=== PATIENT | male | born 1975 | race Caucasian/White ===

== ENCOUNTER 2025-02-17 20:58 | Emergency (ER) | payer BC, SELFPAY ==
[2025-02-17 21:05] VITALS: BP 117/76; RESP 16; TEMP 37.4; BMI 28.4
--- NOTE | 2025-02-17 21:30 | CRLHL7_ITS ---
For Patients: As a result of the Century Cures Act, medical imaging exams and procedure reports are released immediately into your electronic medical record. You may view this report before your referring provider. If you have questions, please contact your health care provider. Indication: Left wrist swelling/drainage. Recent surgery. Technique: Three views of the left wrist. Comparison: None. Findings/Impression: There is soft tissue swelling of the wrist. Plate and screw fixation of the mid to distal radius is incompletely assessed. A surgical pin is present within the distal ulna. Surgical hardware appears grossly intact. Transversely oriented fracture of the radial shaft is present with suggestion of early attempted healing. There is no evidence of acute periprosthetic fracture, dislocation, or suspicious osseous lesion. Wrist alignment is preserved. Dictated by Lexx Umanzor MD @ 02/17/2025 10:35:31 PM (Electronically Signed)
--- OUTSIDE RECORDS SUMMARY | 2025-02-17 22:16 | XMS_ITS | Continuity of Care Document ---
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 wall hematoma. Pelvic ring appears intact. Femoral heads are well-positioned. SI joints are symmetric. Lumbar vertebral body heights are preserved. Left forearm fracture is incompletely evaluated on the weather strip installer view. Impression: 1. Nondisplaced anterior right third through fifth rib fractures. No pneumothorax. 2. No solid organ injury, free fluid, or free air. 3. Nonspecific hazy density within the central mesentery may indicate mesenteric adenitis. No focal mesenteric hematoma. 4. 11 mm left thyroid lobe nodule. Recommend outpatient ultrasound. 5. Left forearm fracture incompletely evaluated. Signed by Norma Marinelli MD 01/31/2025 9:[address] scans are performed using dose optimization techniques as appropriate to a performed exam including automated exposure control and/or standardized protocols for targeted exams where dose is matched to indication/reason for exam/patient size. Final Signed by: NORMA MARINELLI MD Signed (Electronic Signature): 01/31/2025 09:31 am CDT * Exam Date Time Procedure Performing Provider Status 01/31/25 9:[address] Trauma Chest W Dye, Charmaine CT Techno logist I; Modified Notes: (CT Trauma Chest W) Reason For Exam: BCW;Other (please specify) REPORT : 1975 Procedure: CT Chest With Contrast, CT Abdomen and Pelvis With Contrast Date: 01/31/2025 9:21 AM History: Injury, pain Comparison: None Contrast: 60-120 cc nonionic iv Findings: Chest: Aortic arch and great vessels opacify normally. Heart size is normal. No pericardial fluid or bulky mediastinal lymphadenopathy. There is an 11 mm hypoechoic left thyroid lobe nodule. Residual thymic tissue noted. No anterior mediastinal hematoma. No focal lung consolidation, pleural effusion, or pneumothorax. There is a calcified granuloma at the left lung base. Thoracic vertebral body heights are preserved. No displaced sternal fracture. Nondisplaced fractures noted of the anterior right third through fifth ribs no chest wall hematoma. ABDOMEN: The liver, spleen, kidneys, adrenals, pancreas, and gallbladder enhance normally. Neither kidney is hydronephrotic. Stomach is decompressed. No gross evidence of a duodenal hematoma. Mesenteric vessels and portal vein are patent. Nonspecific hazy density noted within the central mesentery. No focal mesenteric hematoma. Pelvis: No bowel dilatation, free fluid, or free air. The appendix is normal. The bladder is decompressed. No bowel containing hernia or abdominal wall hematoma. Pelvic ring appears intact. Femoral heads are well-positioned. SI joints are symmetric. Lumbar vertebral body heights are preserved. Left forearm fracture is incompletely evaluated on the weather strip installer view. Impression: 1. Nondisplaced anterior right third through fifth rib fractures. No pneumothorax. 2. No solid organ injury, free fluid, or free air. 3. Nonspecific hazy density within the central mesentery may indicate mesenteric adenitis. No focal mesenteric hematoma. 4. 11 mm left thyroid lobe nodule. Recommend outpatient ultrasound. 5. Left forearm fracture incompletely evaluated. Signed by Norma Marinelli MD 01/31/2025 9:[address] scans are performed using dose optimization techniques as appropriate to a performed exam including automated exposure control and/or standardized protocols for targeted exams where dose is matched to indication/reason for exam/patient size. Final Signed by: NORMA MARINELLI MD Signed (Electronic Signature): 01/31/2025 09:31 am CDT * Exam Date Time Procedure Performing Provider Status 01/31/25 9:46 AM XR Forearm 2 V Bilateral Slime [facility] X-ray Dimension Warehouse Supervisor; Modified Notes: (XR Forearm [address]) Reason For Exam: Injury, elbow to wrist REPORT PROCEDURE: Two view bilateral forearms DATE: 01/31/2025 9:20 AM COMPARISON: None. HISTORY: Injury, elbow to wrist RIGHT FOREARM FINDINGS: Small punctate hyperdensities project over the forearm soft tissues, likely related to overlying material or foreign bodies. Comminuted impacted intra-articular distal radial fracture with marked volar angulation. Soft tissue swelling. LEFT FOREARM FINDINGS: The mid radial shaft is fractured in two locations with moderate displacement. Ulna appears intact. Soft tissue swelling. IMPRESSION: 1. Comminuted impacted intra-articular distal right radial fracture with marked volar angulation. 2. Left mid radial shaft fracture in two locations with moderate displacement. Signed by Cooper Elkins MD 01/31/2025 10:04 AM Final Signed by: Contributor_system, [email or web address] Signed (Electronic Signature): 01/31/2025 10:04 am CDT * Exam Date Time Procedure Performing Provider Status 01/31/25 9:[address] Head or Brain WO Charmaine Cobb ab initio etl developer nologist I; Modified Notes: (CT Head or Brain WO) Reason For Exam: Head Injury REPORT : 1975 Procedure: CT Head or Brain WO Date: 01/31/2025 9:20 AM History: Injury, pain Comparison: None Findings: Ventricular size and sulcal pattern are normal for age. No midline shift, intra-axial mass, or masslike extra-axial fluid collections. No intracranial hemorrhage. Shea-white interface appears intact. No paranasal sinus air-fluid levels. Mastoids are clear. No depressed skull fracture. IMPRESSION: Negative for acute. Signed by Norma Marinelli MD 01/31/2025 9:[address] scans are performed using dose optimization techniques as appropriate to a performed exam including automated exposure control and/or standardized protocols for targeted exams where dose is matched to indication/reason for exam/patient size. Final Signed by: NORMA MARINELLI MD Signed (Electronic Signature): 01/31/2025 09:24 am CDT Vital Signs 02/01/25 Patient Height 190 cm Patient Height 190 cm Patient Weight (kg) 105 kg Patient Weight (kg) 105 kg [place] Body Weight Calculated 84.047 kg BSA Measured 2.35 m2 Body Mass Index Measured 29.09 kg/m2 Body Mass Index Measured 29.09 kg/m2 Blood Pressure 179/90mmHg (Normal is 95-12 0/59-81 mmHg) Mean Arterial Pressure, Cuff 120 mmHg*>HHI* Temperature Temporal Artery 98.1 DegF ([place] is 97.6-100.6 DegF) SpO2 97 % Heart Rate Monitored 84 bpm (Normal is 60-100 bpm) Respiratory Rate 15 br/min (Normal is 10-2 1 br/min) 01/31/25 Temperature Axillary 98.6 DegF (Normal is 96.6-99.6 DegF) Oxygen Flow Rate 2 L/min Apical Heart Rate 62 bpm (Normal is 59- 101 bpm) Social History Social History Type Response Smoking Status Tobacco use status 3 0 days prior to admission No tobacco use of any form;Never (less than 100 in lifetime) entered on: 02/01/25 Sex Male Hospital Discharge Instructions Patient Education 02/01/2025 08:30:16 Closed Reduction for Wrist or Forearm Closed Reduction for Wrist or Forearm A closed reduction for the wrist or forearm is a procedure to move the bones back into place after they are broken (fractured) or moved out of their normal position (dislocated). In this procedure, the health care provider moves the bones back into position by hand. This procedure is done without an incision or surgery. Your forearm is made up of two long bones called the radius and the ulna. These bones connect your forearm to your wrist. If a forearm bone is fractured on the end closest to the wrist joint, sometimes the bones do not move very far out of place (stable fracture). You may have a closed reduction ifthe fractured or displaced bones of your wrist or forearm will stay stable with a cast or splint after they are moved back into their normal positions. Tell a health care provider about: ??? Any allergies you have. ??? All medicines you are taking, including vitamins, herbs, eye drops, creams, and fgne-srz-sfgnnmv medicines. ??? Any problems you or family members have had with anesthetic medicines. ??? Any blood disorders you have. ??? Any surgeries you have had. ??? Any medical conditions you have. ??? Whether you are or may be . What are the risks? Generally, this is a safe procedure. However, problems may occur, including: ??? Infection. ??? Bleeding. ??? Allergic reactions to medicines. ??? Damage to nerves or blood vessels. ??? Failure to heal. ??? Continued pain or stiffness in the wrist. What happens before the procedure? Staying hydrated Follow instructions from your health care provider about hydration, which may include: ??? Up to 2 hours before the procedure ??? you may continue to drink clear liquids, such as water, clear fruit juice, black coffee, and plain tea. Eating and drinking restrictions Follow instructions from your health care provider about what you may eat and drink before your procedure. These may include: ??? 8 hours before your procedure ??? Stop eating most foods. Do not eat meat, fried foods, or fatty foods. ??? Eat only light foods, such as toast or crackers. ??? All liquids are okay except energy drinks and alcohol. ??? 6 hours before your procedure ??? Stop eating. ??? Drink only clear liquids, such as water, clear fruit juice, black coffee, plain tea, and sportsdrinks. ??? Do not drink energy drinks or alcohol. ??? 2 hours before your procedure ??? Stop drinking all liquids. ??? You may be allowed to take medicines with small sips of water. Follow instructions from your health care provider about eating and drinking, which may include: ??? 8 hours before the procedure ??? stop eating heavy meals or foods, such as meat, fried foods, or fatty foods. ??? 6 hours before the procedure ??? stop eating light meals or foods, such as toast or cereal. ??? 6 hours before the procedure ??? stop drinking milk or drinks that contain milk. ??? 2 hours before the procedure ??? stop drinking clear liquids. Medicines Ask your health care provider about: ??? Changing or stopping your regular medicines. This is especially important if you are taking diabetes medicines or blood thinners. ??? Taking medicines such as aspirin and ibuprofen. These medicines can thin your blood. Do not take these medicines unless your health care provider tells you to take them. ??? Taking usfs-aqj-fevfooc medicines, vitamins, herbs, and supplements. General instructions ??? You may have a physical exam. The exam may include X-rays to find out more about your condition. ??? Plan to have someone take you home from the hospital or clinic. ??? If you will be going home right after the procedure, plan to have someone with you for 24 hours. ??? Ask your health care provider what steps will be taken to help prevent infection. These may include washing your skin with a germ-killing soap. What happens during the procedure? An IV may be inserted into one of your veins. ??? You may be given one or more of the following: ??? A medicine to help you relax (sedative). ??? A medicine to make you fall asleep (general anesthetic). ??? A medicine that is injected into an area of your body to numb everything below the injection site (regional anesthetic). ??? Your health care provider will move the broken bones back into their normal position. ??? You will have more X-rays to make sure the bones are in the right position. ??? You will have to wear a cast or splint to hold the bones in place while they heal. The procedure may vary among health care providers and hospitals. What happens after the procedure? Your blood pressure, heart rate, breathing rate, and blood oxygen level will be monitored untilyou leave the hospital or clinic. ??? Your arm and hand will be raised (elevated). ??? You will be given medicine for pain as needed. ??? Do not drive for 24 hours if you were given a sedative during your procedure. Summary ??? A closed reduction for your wrist or forearm is used when you have broken or dislocated one or more bones in your arm. ??? A closed reduction puts the bones back in their normal position without an incision or surgery. ??? After the closed reduction procedure, your wrist or forearm will be placed in a splint or cast. This information is not intended to replace advice given to you by your health care provider. Make sure you discuss any questions you have with your health care provider. Document Revised: 04/12/2023 Document Reviewed: 05/19/2020 [employer] Patient Education ?? 2022 [employer]. 02/01/2025 08:30:14 Closed Reduction for Wrist or Forearm, Care After Closed Reduction for Wrist or Forearm, Care After This sheet gives you information about how to care for yourself after your procedure. Your health care provider may also give you more specific instructions. If you have problems or questions, contact your health care provider. What can I expect after the procedure? After the procedure, it is common to have: ??? Pain. ??? Swelling. Follow these instructions at home: If you have a splint: ??? Wear the splint as told by your health care provider. Remove it only as told by your health care provider. ??? Loosen the splint if your fingers tingle, become numb, or turn cold and blue. ??? Keep the splint clean. ??? If the splint is not waterproof: ??? Do not let it get wet. ??? Cover it with a watertight covering when you take a bath or shower. If you have a cast: ??? Do not stick anything inside the cast to scratch your skin. Doing that increases your risk of infection. ??? Check the skin around the cast every day. Tell your health care provider about any concerns. ??? You may put lotion on dry skin around the edges of the cast. Do not put lotion on the skin underneath the cast. ??? Keep the cast clean. ??? If the cast is not waterproof: ??? Do not let it get wet. ??? Cover it with a watertight covering when you take a bath or shower. Managing pain, stiffness, and swelling ??? If directed, put ice on the injured area. To do this: ??? If you have a removable splint, remove it as told by your health care provider. ??? Put ice in a plastic bag. ??? Place a towel between your skin and the bag or between your cast and the bag. ??? Leave the ice on for 20 minutes, 2???3 times per day. ??? Move your fingers often to reduce stiffness and swelling. ??? Raise (elevate) the injured area above the level of your heart while you are sitting or lying down. Driving ??? Ask your health care provider if the medicine prescribed to you requires you to avoid driving or using heavy machinery. ??? Do not drive for 24 hours if you were given a sedative during your procedure. ??? Ask your health care provider when it is safe to drive if you have a cast or splint on your arm. Activity ??? Return to your normal activities as told by your health care provider. Ask your health care provider what activities are safe for you. ??? Do exercises as told by your health care provider. General instructions ??? Do not put pressure on any part of the cast or splint until it is fully hardened. This may takeseveral hours. ??? Take rrtz-xie-eylkqxg and prescription medicines only as told by your health care provider. ??? Do not use any products that contain nicotine or tobacco, such as cigarettes, e-cigarettes, andchewing tobacco. These can delay bone healing. If you need help quitting, ask your health care provider. ??? Keep all follow-up visits as told by your health care provider. This is important. Contact a health care provider if: ??? You have a fever. ??? Your pain is not controlled by your pain medicine. Get help right away if: ??? You have severe pain. ??? You have a severe increase in swelling. ??? Your fingers become very cold or blue. ??? You have numbness, tingling, or loss of feeling in your hands or fingers. Summary ??? After the procedure, it is common to have pain and swelling. ??? Return to your normal activities as told by your health care provider. Ask your health care provider what activities are safe for you. ??? Get help right away if you have a severe increase in swelling, your fingers become very cold orblue, or you have numbness, tingling, or loss of feeling in your hands or fingers. This information is not intended to replace advice given to you by your health care provider. Make sure you discuss any questions you have with your health care provider. Document Revised: 04/12/2023 Document Reviewed: 05/19/2020 [employer] Patient Education ?? 2022 [employer]. 02/01/2025 08:28:14 Wrist Fracture Treated With Immobilization Wrist Fracture Treated With Immobilization A wrist fracture is a break or crack in one of the bones of the wrist. The wrist is made up of eight small bones at the palm of the hand (carpal bones) and two long bones that make up the forearm (radius and ulna). If the joint is stable and the bones are still in their normal position (nondisplaced), the injury may be treated with immobilization. This involves the use of a cast, splint, or sling to hold the wrist in place. Immobilization ensures that the bones continue to stay in the correct position while the wrist is healing. What are the causes? This condition may be caused by: ??? A direct force to the wrist. ??? Trauma, such as a car crash or falling on an outstretched hand. What increases the risk? The following factors may make you more likely to develop this condition: ??? Doing contact sports or high-risk sports such as skiing, biking, and ice skating. ??? Taking steroid medicines. ??? Smoking. ??? Being female. ??? Being . ??? Drinking more than three alcoholic beverages a day. ??? Having a condition that weakens the bones (osteoporosis). ??? Being older. ??? Having a history of previous fractures. What are the signs or symptoms? Symptoms of this condition include: ??? Pain. ??? Swelling. ??? Bruising. ??? Not being able to move the wrist normally. The wrist may also hang in an odd position or appear deformed. How is this diagnosed? This condition may be diagnosed based on a physical exam and X-rays. You may also have a CT scan orMRI. How is this treated? Treatment for this condition involves wearing a cast, splint, or sling until the injured area is stable enough for you to begin eswpg-gv-rvjmec exercises. You may also be prescribed pain medicine. Follow these instructions at home: If you have a cast: ??? Do not stick anything inside the cast to scratch your skin. Doing that increases your risk of infection. ??? Check the skin around the cast every day. Tell your health care provider about any concerns. ??? You may put lotion on dry skin around the edges of the cast. Do not put lotion on the skin underneath the cast. ??? Keep the cast clean and dry. If you have a splint or sling: ??? Wear the splint or sling as told by your health care provider. Remove it only as told by your health care provider. ??? Loosen the splint or sling if your fingers tingle, become numb, or turn cold and blue. ??? Keep the splint or sling clean and dry. Bathing ??? Do not take baths, swim, or use a hot tub until your health care provider approves. Ask your health care provider if you may take showers. You may only be allowed to take sponge baths. ??? If your cast, splint, or sling is not waterproof: ??? Do not let it get wet. ??? Cover it with a watertight covering when you take a bath or a shower. ??? If you have a sling, remove it for bathing only if your health care provider tells you it is safe to do that. Managing pain, stiffness, and swelling ??? If directed, put ice on the injured area. To do this: ??? If you have a removable splint or sling, remove it as told by your health care provider. ??? Put ice in a plastic bag. ??? Place a towel between your skin and the bag or between your cast and the bag. ??? Leave the ice on for 20 minutes, 2???3 times a day. ??? Remove the ice if your skin turns bright red. This is very important. If you cannot feel pain, heat, or cold, you have a greater risk of damage to the area. ??? Move your fingers often to reduce stiffness and swelling. ??? Raise (elevate) the injured area above the level of your heart while you are sitting or lying down. Activity ??? Return to your normal activities as told by your health care provider. Ask your health care provider what activities are safe for you. ??? Do not lift with or put weight on your injured wrist until your health care provider approves. ??? Ask your health care provider when it is safe to drive if you have a cast, splint, or sling on your wrist. ??? Do ostdc-jp-xubhgf exercises only as told by your health care provider or physical therapist. Medicines ??? Take oxrm-izh-tqtedyt and prescription medicines only as told by your health care provider. ??? Ask your health care provider if the medicine prescribed to you: ??? Requires you to avoid driving or using machinery. ??? Can cause constipation. You may need to take these actions to prevent or treat constipation: ??? Drink enough fluid to keep your urine pale yellow. ??? Take pwpx-yab-kivffgr or prescription medicines. ??? Eat foods that are high in fiber, such as beans, whole grains, and fresh fruits and vegetables. ??? Limit foods that are high in fat and processed sugars, such as fried or sweet foods. General instructions ??? Do not put pressure on any part of the cast or splint until it is fully hardened. This may takeseveral hours. ??? Do not use any products that contain nicotine or tobacco, such as cigarettes, e-cigarettes, andchewing tobacco. These can delay bone healing. If you need help quitting, ask your health care provider. ??? Keep all follow-up visits. This is important. Contact a health care provider if: ??? Your cast, splint, or sling is damaged or loose. ??? You have any new pain, swelling, or bruising. ??? Your pain, swelling, and bruising do not improve. ??? You have a fever. ??? You have chills. Get help right away if: ??? Your skin or fingers on your injured arm turn blue or shea. ??? Your arm feels cold or numb. ??? You have severe pain in your injured wrist. Summary ??? A wrist fracture is a break or crack in one of the bones of the wrist. ??? If the joint is stable and the bones are still in their normal position, the injury may be treated by wearing a cast, splint, or sling. ??? If you have a cast, check the skin around the cast every day. Tell your health care provider about any concerns. ??? If you have a splint or sling, wear it as told by your health care provider. Remove it only as told by your health care provider. This information is not intended to replace advice given to you by your health care provider. Make sure you discuss any questions you have with your health care provider. Document Revised: 02/07/2021 Document Reviewed: 02/07/2021 [employer] Patient Education ?? 2022 [employer]. 02/01/2025 08:27:58 Cast or Splint Care, Adult Cast or Splint Care, Adult Casts and splints are supports that are worn to protect broken bones and other injuries. A cast or splint may hold a bone still and in the correct position while it heals. Casts and splints may also help with pain, swelling, and muscle spasms. A cast is a hardened support that is usually made of fiberglass or plaster. It is custom-fit to thebody and offers more protection than a splint. Most casts cannot be taken off and put back on. A splint is a type of soft support that is usually made from cloth and elastic. It can be adjusted or taken off as needed. Often, when a bone is broken, a splint is put on until the swelling goes down, and then the splint is replaced by a cast. You may need a cast or a splint if you: ??? Have a broken bone. ??? Have a soft-tissue injury. ??? Need to keep an injured body part from moving (keep it immobile) after surgery. What are the risks? In some cases, wearing a cast or splint can cause a reduced blood supply to the wrist or hand or tothe foot and toes. This can happen if there is a lot of swelling or if the cast or splint is too tight. Limited blood supply results in a condition called compartment syndrome and can cause permanentdamage. Symptoms include: ??? Pain that is getting worse. ??? Numbness and tingling. ??? Changes in skin color, including paleness or a bluish color. ??? Cold fingers or toes. Other complications of wearing a cast or splint can include: ??? Skin irritation that can cause itching, rash, skin sores, or skin infection. ??? Limb stiffness or weakness. How to care for a nonremovable cast or splint ??? Do not put pressure on any part of the cast or splint until it is fully hardened. This may takeseveral hours. ??? Check the skin around the cast or splint every day. Tell your health

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
[2025-02-17 22:53] LABS: Basophils Absolute Auto 0.04 K/uL (0.00-0.30); Basophils Percent Auto 0.6 % (0.0-3.0); Eosinophils Absolute Auto 0.16 K/uL (0.00-0.50); Eosinophils Percent Auto 2.5 % (0.0-7.0); Hematocrit 36.2 % (37.0-53.0); Hemoglobin* 12.5 gm/dL (13.5-17.5); Immature Granulocytes Abs Auto 0.07 K/uL (0.00-0.30); Immature Granulocytes Pct Auto 1.1 %; Lymphocytes Percent Auto 12.3 % (20-44); Mean Corpuscular HGB Conc 35 gm/dL (32-36); Mean Corpuscular Hemoglobin 31 pg (26-34); Mean Corpuscular Volume 91 fL (80-100); Monocytes Percent Auto 9.3 % (0.0-11.0); Neutrophils Percent Auto 74.2 % (42.0-72.0); Platelet Count* 360 K/uL (140-440); RDW Coefficient of Variation % 11.1 % (11.5-15.5); White Blood Count* 6.43 K/uL (4.50-11.00)
[2025-02-17 22:55] LABS: Slide Review Reflex No
[2025-02-17 23:09] LABS: Chloride* 99 mmol/L (96-114)
[2025-02-17 23:10] LABS: Potassium* 4.1 mmol/L (3.6-5.1); Sodium* 133 mmol/L (135-149)
[2025-02-17 23:12] LABS: Blood Urea Nitrogen* 21 mg/dL (7-30); Est. Creatinine Clearance* 105.63; Estimated Glomerular Filt Rate 92 ml/min
[2025-02-17 23:13] LABS: Anion Gap 8 mEq/L (7-15); Calcium* 9.1 mg/dL (8.4-10.6); Carbon Dioxide* 26 mmol/L (20-32); Glucose* 118 mg/dL (60-115)
[2025-02-17 23:51] VITALS: BP 121/74; PULSE 84; RESP 16; TEMP 37.4
== END 2025-02-17 23:52 | disposition home or self-care (01) ==
PROVIDERS: Emergency Provider Student in an Organized Health Care Education/Training Program
DX: T81.49XA Infection following a procedure, other surgical site, initial encounter (principal)
CPT/HCPCS: 36415; 73110; 80048; 85025; 99283

== ENCOUNTER 2025-07-06 07:30 | Outpatient (RCR) | payer BC, SELFPAY | END 2025-11-03 23:59 | disposition home or self-care (01) | PROVIDERS: Visit Provider Physician Assistant Surgical | DX: S52.90XD Unspecified fracture of unspecified forearm, subsequent encounter for closed fracture with routine healing (principal); S62.109D Fracture of unspecified carpal bone, unspecified wrist, subsequent encounter for fracture with routine healing; Z51.89 Encounter for other specified aftercare | CPT/HCPCS: 97110; 97140; 97166; X5282 ==